=== PATIENT | female | born 1955 | race Caucasian/White ===

== ENCOUNTER 2020-11-12 14:22 | Outpatient (REF) | payer OTHER, SELFPAY | END 2020-11-12 14:23 | disposition home or self-care (01) | LOC: HO.BBR 14:22 | PROVIDERS: Visit Provider Internal Medicine | DX: Z13.89 Encounter for screening for other disorder (principal) ==

== ENCOUNTER 2021-02-15 14:26 | Outpatient (REF) | payer MEDICARE, SELFPAY | END 2021-02-15 14:27 | disposition home or self-care (01) | LOC: HO.BBR 14:26 | PROVIDERS: Visit Provider Internal Medicine | DX: Z13.89 Encounter for screening for other disorder (principal) ==

== ENCOUNTER 2025-03-20 14:01 | Outpatient (REF) | payer MEDICARE, SELFPAY ==
--- OUTSIDE RECORDS SUMMARY | 2025-03-20 16:02 | XMS_ITS | Clinical Summary ---
Author Organization [facility] Address [address] [place] [address] Phone Care Team Providers Care Printer Repair Technician Name Role Phone Junie Weinstein NP Primary Care Provider [phone] Allergies Active Allergy Reactions Criticality Noted Date Comments Tetracycline 03/28/2018 Medications estradioL (VAGIFEM) 10 mcg tablet vaginal tablet Insert 1 tablet (10 mcg total) into the vagina 2 (two) times a week. Active b complex vitamins (Vitamins B Complex) capsule Take 1 capsule by mouth 1 (one) time each day. Active calcium carbonate-vitam in D3 600 mg-10 mcg (400 unit) chewable tablet Chew 1 tablet 1 (one) time each day. 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 Encounters Date Type Department Care Team Description 03/11/2025 Telephone [facility] Hematology Oncology [address] [place] [phone] Rodrick Lewis MD 02/13/2025 Telephone [facility] Hematology Oncology [address] [place] [address] Rodrick Lewis MD from Last 3 Months Surgical History Surgery Date Site/Laterality Comments MASTECTOMY 1990 Right PROCEDURE: HISTORICAL MASTECTOMY MASTECTOMY 2005 Left PROCEDURE: HISTORICAL MASTECTOMY BREAST RECONSTRUCTION 2005 PROCEDURE: BREAST RECONSTRUCTION COLONOSCOPY 09/20/2007 PROCEDURE: HISTORICAL COLONOSCOPY; COMMENT: Normal. 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 Osteoarthritis 03/28/2018 DX:Osteoarthriti s; COMMENT: Left Hip, Fingers Left Hand Family History Medical History Relation Name Comments Breast cancer Aunt Liver cancer Brother Presumably seco ndary to Hemochromatosis Relation Name Status Comments Aunt Brother Social History Tobacco Use Types Packs/Day Years Used Date Smoking Tobacco: Former Cigarettes 1 10 0 07/03/1972 - 07/03/1982 Alcohol Use Standard Drinks/Week Comments Yes 0 (1 standard drink = 0.6 oz pur e alcohol) Comments Unknown Sex and Gender Information Value Date Recorded Sex Assigned at Not on file Legal Sex Female 11:32 AM EST Gender Identity Not on file Sexual Orientation Not on file Obstetrics History Last Filed Vital Signs Vital Sign Reading Time Taken Comments Blood Pressure 118/74 06/28/2024 2:10 PM EST Pulse 82 06/28/2024 2:10 PM EST Temperature 36.7 C (98.1 F) 06/28/2024 2:10 PM EST Respiratory Rate - - Oxygen Saturation 99% 06/28/2024 2:10 PM EST Inhaled Oxygen Concentration - - Weight 72.3 kg (159 lb 6.4 oz) 06/28/2024 2:10 P M EST Height - - Body Mass Index - - Plan of Treatment Health Maintenance Due Date Last Done Comments Pneumococcal Vaccine: 50+ Years (1 of 2 - PCV) 12/04/1974 Zoster Vaccines (1 of 2) 12/04/2005 DTaP,Tdap,and Td Vaccines (2 - Td or Tdap) 01/09/2022 01/10/2012 Falls Risk Assessment 06/10/2022 Hepatitis C Screening 06/10/2022 Medicare Annual Wellness Visit 06/10/2022 Osteoporosis Screening (Bone Density Screening) 06/10/2022 Social Influencers of Health Screening 06/10/2022 Depression Screening 07/03/2024 COVID-19 Vaccine (3 - 2024-2 6 season) 2025 12/18/2020, 11/20/2020 Influenza Vaccine (#1) 2025 Colorectal Cancer Screening: FIT-DNA (Cologuard) 05/26/2027 05/26/2024, 05/26/2024 RSV Immunization Adult Patients (1 - 1-dose 75+ series) 12/04/2030 Colorectal Cancer Screening: Colonoscopy Discontinued 09/20/2007 HIB Vaccines Aged Out No longer eligi ble based on patient's age to complete this topic HPV Vaccines Aged Out No longer eligi ble based on patient's age to complete this topic Hepatitis A Vaccines Aged Out No long er eligible based on patient's age to complete this topic Hepatitis B Vaccines Aged Out No long er eligible based on patient's age to complete this topic IPV Vaccines Aged Out No longer eligi ble based on patient's age to complete this topic MMR Vaccines Aged Out No longer eligi ble based on patient's age to complete this topic Meningococcal ACWY Vaccine Aged Out N o longer eligible based on patient's age to complete this topic Meningococcal B Vaccine Aged Out No l onger eligible based on patient's age to complete this topic RSV Immunization Patients Under 20 months Aged Out No longer eligible based on patient's age to complete this topic Varicella Vaccines Aged Out No longer eligible based on patient's age to complete this topic Procedures Procedure Name Priority Date/Time Associated Diagnosis Comments COLONOSCOPY Routine 09/20/2007 from Last 3 Months or Most Recently Relevant to Health Maintenance Results * Colonoscopy (09/20/2007) Colonoscopy No interpretation , abstracted Anatomical Region Laterality Modality Other Historical Provider HEALTH MAINTENANCE Final Result from Last 3 Months or Most Recently Relevant to Health Maintenance Insurance [employer]UE [employer]OSS - [place] MEDICARE ADVANTAGE Care Teams Printer Repair Technician Relationship Specialty Start Date End Date Junie Weinstein NP [address] [place] [phone] PCP - General 10/30/20
--- OUTSIDE RECORDS SUMMARY | 2025-03-20 16:02 | XMS_ITS | Clinical Summary ---
Author Organization [facility] Address [address] [place] [address] [address] [place] [address] Care Team Providers Care Return Clerk Name Role Phone Unavailable Primary Care Provider Unavailabl e Allergies Active Allergy Reactions Criticality Noted Date Comments Fresh-Water Clam Shells 08/23/2023 Other 08/23/2023 clams Tetracycline Unknown 08/23/2023 Medications B Complex Vitamins (B COMPLEX 100 PO) Take by mouth. 9 Active calcium 200 MG tablet 1 tab Oral Active Yuvafem 10 MCG tablet vaginal tablet INSERT 10 MCG VAGINALLY 2-3X WEEKLY Active Active Problems No known active problems Social History Tobacco Use Types Packs/Day Years Used Date Smoking Tobacco: Former Cigarettes Passive Smoke Exposure: Past Smokeless Tobacco: Never Tobacco Cessation:Counseling Given: No Alcohol Use Standard Drinks/Week Comments Not Currently 0 (1 standard drink = 0.6 oz pur e alcohol) Comments Unknown Sex and Gender Information Value Date Recorded Sex Assigned at Female 12/02/2022 7:56 AM EDT Legal Sex Female 5:35 PM EDT Gender Identity Female 12/02/2022 7:56 AM EDT Sexual Orientation Choose not to disclose 2022 7:56 AM EDT Plan of Treatment Upcoming Encounters Date Type Department Care Team (Late st Contact Info) Description 04/02/2025 3:00 PM EDT Office Visit [place] [facility] D[facility]AL [address] [place] [address] Christal Mayfield Health Maintenance Due Date Last Done Comments CT Colonography 1955 Colonoscopy 1955 Depression Screening 1955 FIT 1955 SDOH Screening 1955 Sigmoidoscopy 1955 Alcohol/Substance Use Screening 1967 Hepatitis C Screening 12/04/1973 Hepatitis A Vaccines (1 of 2 - Risk 2-dose series) 12/04/1974 Mammogram 1995 Pneumococcal Vaccine: 50+ Years (1 of 1 - PCV) 12/04/2005 Zoster Vaccines (1 of 2) 12/04/2005 Hepatitis B Vaccines (1 of 3 - Risk 3-dose series) 2015 RSV Patients and Patients Aged 60 years or older (1 - Risk 60-74 years 1-dose series) 2015 DTaP/Tdap/Td Vaccines (2 - Td or Tdap) 01/09/2022 01/10/2012 COVID-19 Vaccine (3 - season) 2025 12/18/2020, 11/20/2020 Influenza Vaccine (#1) 2025 Dental Oral Exam 03/16/2025 09/12/2024, 09/2023, 12/30/2021, Additional history exists Dental Prophylaxis 03/16/2025 09/12/2024, 0 01/03/2024, 12/30/2021, Additional history exists FOBT 05/26/2025 05/26/2024 Tobacco Screening 09/12/2025 09/12/2024 Dental X-Ray: Bitewings 09/13/2025 09/13/19 25, 06/30/2021, 06/15/2020, Additional history exists Colorectal Cancer Screening 05/26/2027 FIT DNA/Cologuard 05/26/2027 05/26/2024 Dental X-Ray: Full Mouth 09/14/2027 025, 01/06/2016, 11/01/2007 HIB Vaccines Aged Out No longer eligi [...] patient's age to complete this topic Meningococcal Vaccine Aged Out No ernesto mateus eligible based on patient's age to complete this topic RSV under 20 months Aged Out No longe r eligible based on patient's age to complete this topic Rotavirus Vaccines Aged Out No longer eligible based on patient's age to complete this topic Procedures Procedure Name Priority Date/Time Associated Diagnosis Comments Full PROPHYLAXIS - ADULT Routine 025 3:00 PM EDT INTRAORAL - COMPLETE SERIES OF RADIOGRAPHIC IMAGES Routine 09/12/2024 3:00 PM EDT PERIODIC ORAL EVALUATION - ESTABLISHED PATIENT Routine 09/12/2024 3:00 PM EDT from Last 3 Months or Most Recently Relevant to Health Maintenance Insurance DENTAL - [employer] MEDICARE ADVANTAGE
--- OUTSIDE RECORDS SUMMARY | 2025-03-20 16:02 | XMS_ITS | Encounter Summary ---
Author Organization [facility] Address [address] [place] [address] Care Team Providers Care Gis Instructor Name Role Phone Junie Weinstein PARK INTERPRETIVE RANGER Primary Care Provider Encounter Details Date Type Department Care Team (Late st Contact Info) Description 03/11/2025 Telephone [facility] Hematology Oncology [address] [place] [phone] Rodrick Lewis MD [address] [place] [address] Social History Tobacco Use Types Packs/Day Years [...] on file Sexual Orientation Not on file documented as of this encounter Progress Notes * Rodrick Lewis MD - 03/13/2025 9:14 AM EDT Ferritin elevated at 352, recommend phlebotomy 2 times, 6 months apart, Okay to send in an order and let her know * Alice Prather MA - 03/12/2025 3:50 PM EDT Labs from [facility] scanned into patients chart for review. * Shilpa Sanders - 03/11/2025 3:45 PM EDT Pt calling she would like lab results from 3 weeks ago documented in this encounter Plan of Treatment Not on file documented as of this encounter Visit Diagnoses Not on filedocumented in this encounter Care Teams Gis Instructor Relationship Specialty Start Date End Date Junie Weinstein NP [address] [place] [phone] PCP - General 10/30/20 documented as of this encounter
--- OUTSIDE RECORDS SUMMARY | 2025-03-20 16:02 | XMS_ITS | Encounter Summary ---
Author Organization [employer] Address [address] [place] [address] [place] [address] Care Team Providers Care Pulpwood Dealer Name Role Phone Unavailable Primary Care Provider Unavailabl e Encounter Details Date Type Department Care Team (Latest Contact Info) Description 01/28/2019 Abstract [facility], Provider, DDS Social History Tobacco Use Types Packs/Day Years Used Date Smoking Tobacco: Never Assessed Comments Unknown Sex and Gender Information Value Date Recorded Sex Assigned at Female 12/02/2022 7:56 AM EDT Legal Sex Female 5:35 PM EDT Gender Identity Female 12/02/2022 7:56 AM EDT Sexual Orientation Choose not to disclose 2022 7:56 AM EDT documented as of this encounter Plan of Treatment Upcoming Encounters Date Type Department Care Team (Late st Contact Info) Description 04/02/2025 3:00 PM EDT Office Visit [place] [facility] D[facility] [address] [place] [address] Christal Mayfield documented as of this encounter Visit Diagnoses Not on filedocumented in this encounter
--- OUTSIDE RECORDS SUMMARY | 2025-03-20 16:02 | XMS_ITS | Encounter Summary ---
Author Organization [employer] Address [address] [place] [address] [place] [address] Care Team Providers Care Fountain Clerk Name Role Phone Unavailable Primary Care Provider Unavailabl e Encounter Details Date Type Department Care Team (Latest Contact Info) Description 07/30/2018 Abstract [facility], Provider, DDS Social [...] Description 04/02/2025 3:00 PM EDT Office Visit [place] [facility] D[facility] [address] [place] [address] Christal Mayfield documented as of this encounter Visit Diagnoses Not on filedocumented in this encounter
--- OUTSIDE RECORDS SUMMARY | 2025-03-20 16:02 | XMS_ITS | Encounter Summary ---
Author Organization [employer] Address [address] [place] [address] Care Team Providers Care Manager Women Name Role Phone Unavailable Primary Care Provider Unavailabl e Encounter Details Date Type Department Care Team (Latest Contact Info) Description 06/30/2021 Abstract [facility], Provider, DDS Social [...] Description 04/02/2025 3:00 PM EDT Office Visit [place] [facility] DENTAL [address] [place] [address] Christal Mayfield documented as of this encounter Visit Diagnoses Not on filedocumented in this encounter
--- OUTSIDE RECORDS SUMMARY | 2025-03-20 16:02 | XMS_ITS | Clinical Summary ---
Author Organization [facility] Address [address] [place] [address] Care Team Providers Care Drain Tile Machine Operator Name Role Phone Junie Weinstein NP Primary Care Provider Allergies No known active allergies Medications Medication Sig Dispensed Refills Start Date End Date Status b aakxypl-U-uqioi acid 1 MG capsule Take 1 capsule by mouth daily. 0 Active ALPRAZolam (XANAX) 0.5 MG tablet TAKE 1 TABLET BY MOUTH EVERY DAY AT BEDTIME NEEDED FOR INSOMNIA 0 09/02/2020 Active Active Problems Problem Noted Date Diagnosed Date Hereditary hemochromatosis 10/17/2019 Social History Tobacco Use Types Packs/Day Years Used Date Smoking Tobacco: Never Assessed Sex and Gender Information Value Date Recorded Sex Assigned at Not on file Gender Identity Not on file Sexual Orientation Not on file Job Start Date Occupation Industry Not on file Not on file Not on file Plan of Treatment Health Maintenance Due Date Last Done Comments Hepatitis C Screening 1955 COVID-19 Vaccine (#1) 06/05/1956 Depression Screening 1967 Preventative Health Evaluation 12/04/1973 DTap / Tdap / Td (1 - Tdap) 12/04/1974 Colon Cancer Screening (Colonoscopy) 12/04/2000 Breast Cancer Screening (Mammogram) 12/04/2005 Shingrix-Zoster Vaccine (1 of 2) 12/04/2005 Fall Risk Assessment 12/04/2020 Osteoporosis Screening (DEXA Scan) 12/04/2020 Pneumococcal Vaccine (1 of 1 - PCV) 12/04/2020 Influenza Vaccine (#1) 2025 RSV Adult > 60+ Yrs or Pregn ant (1 - 1-dose 75+ series) 12/04/2030 Hepatitis B Vaccines Aged Out No long er eligible based on patient's age to complete this topic RSV Ped < 20 months Aged Out No longe r eligible based on patient's age to complete this topic Care Teams Drain Tile Machine Operator Relationship Specialty Start Date End Date Junie Weinstein NP [address] [place] [address] [place] [address] PCP - General Family Medicine 10/30/20
--- OUTSIDE RECORDS SUMMARY | 2025-03-20 16:02 | XMS_ITS | Encounter Summary ---
Author Organization [employer] Address [address] [place] [address] Care Team Providers Care Business Division Chair Name Role Phone Unavailable Primary Care Provider Unavailabl e Encounter Details Date Type Department Care Team (Latest Contact Info) Description 12/16/2020 Abstract [facility], Provider, DDS Social [...] Description 04/02/2025 3:00 PM EDT Office Visit [place] [facility] D[facility] [address] [place] [address] Christal Mayfield documented as of this encounter Visit Diagnoses Not on filedocumented in this encounter
--- OUTSIDE RECORDS SUMMARY | 2025-03-20 16:02 | XMS_ITS | Encounter Summary ---
Author Organization [employer] Address [address] [place] [address] Care Team Providers Care Heat And Frost Insulator Name Role Phone Unavailable Primary Care Provider Unavailabl e Encounter Details Date Type Department Care Team (Latest Contact Info) Description 12/30/2021 Abstract [facility], Provider, DDS Social [...] Description 04/02/2025 3:00 PM EDT Office Visit [place] [facility] DENTAL [address] [place] [address] Christal Mayfield documented as of this encounter Visit Diagnoses Not on filedocumented in this encounter
--- OUTSIDE RECORDS SUMMARY | 2025-03-20 16:02 | XMS_ITS | Encounter Summary ---
Author Organization [employer] Address [address] [place] [address] Care Team Providers Care Major League Baseball Umpire Name Role Phone Unavailable Primary Care Provider Unavailabl e Encounter Details Date Type Department Care Team (Latest Contact Info) Description 08/01/2019 Abstract [facility], Provider, DDS Social [...] Description 04/02/2025 3:00 PM EDT Office Visit [place] [facility] DENTAL [address] [place] [address] Christal Mayfield documented as of this encounter Visit Diagnoses Not on filedocumented in this encounter
--- OUTSIDE RECORDS SUMMARY | 2025-03-20 16:02 | XMS_ITS | Encounter Summary ---
Author Organization [employer] Address [address] [place] [address] Care Team Providers Care Programs Manager Name Role Phone Unavailable Primary Care Provider Unavailabl e Encounter Details Date Type Department Care Team (Latest Contact Info) Description 06/15/2020 Abstract [facility], Provider, DDS Social [...] Description 04/02/2025 3:00 PM EDT Office Visit [place] [facility] D[facility] [address] [place] [address] Christal Mayfield documented as of this encounter Visit Diagnoses Not on filedocumented in this encounter
== END 2025-03-20 14:02 | disposition home or self-care (01) ==
LOC: HO.BBR 14:01
PROVIDERS: PCP Internal Medicine; Visit Provider Internal Medicine
DX: Z13.89 Encounter for screening for other disorder (principal)